=== PATIENT | male | born 1975 | race Caucasian/White ===

== ENCOUNTER → 2016-05-21 | Outpatient (CLI) | payer BC ==
[~2016-05-21] MED LIST: IODIXANOL LOCM 100 ML BTL ONE; SOD CHLORIDE 0.9% 100 ML ONE
[2016-05-21 11:16] LABS: POTASSIUM 4.4 mmol/L (3.5-5.1)
[2016-05-21 11:18] LABS: CREATININE 0.92 mg/dl (0.61-1.24)
[2016-05-21 11:19] LABS: CALCIUM 9.6 mg/dl (8.4-10.2)
--- NOTE | 2016-05-21 17:26 | RADRPT ---
PROCEDURE: CT CHEST WITHOUT CONTRAST CLINICAL INDICATION: Cough and wheezing TECHNIQUE: Volumetrically acquired images of the thorax obtained without intravenous contrast were reformatted in the axial, coronal, and sagittal planes. CTDI = 16.0 mGy; DLP = 682 mGy-cm. One or more of the following dose reduction technique were used: Automatic exposure control, adjustment of the mA and/or kV according to patient size, and use of iterative reconstruction technique. COMPARISON: 07/02/2014. FINDINGS: LOWER NECK AND CHEST WALL: Normal. AIRWAYS: The trachea and large airways are normal. Mild bronchial wall thickening is seen. LUNGS: Clear. No suspicious nodules, masses, or consolidation. PLEURA: Unremarkable. No pleural thickening or effusions. MEDIASTINUM: No mediastinal mass. LYMPH NODES: No significant axillary, hilar, or mediastinal lymphadenopathy by CT size criteria. CARDIAC: The heart size is normal. No pericardial effusion or thickening. VASCULAR: The aorta and main pulmonary artery are normal in caliber. OSSEOUS: No suspicious osseous lesions. Limited evaluation of the upper abdomen is unremarkable. IMPRESSION: 1. No intra-thoracic mass, lymphadenopathy, or focal acute consolidation. 2. Mild bronchial wall thickening may be sequela of bronchitis, asthma, or other nonspecific airway inflammation. . RPTAT:PP .Sarthak Nichols MD, Date Time Electronically viewed and signed by .Sarthak Nichols MD, MD on 05/21/2016 17:26 .V/
== END | disposition home or self-care (01) ==
LOC: C/S 10:42
PROVIDERS: ATTEND Internal Medicine
DX: R05 Cough (principal); R06.2 Wheezing; I10 Essential (primary) hypertension
CPT/HCPCS: 71270; 80048; Q9967

== ENCOUNTER → 2016-06-11 | Outpatient (CLI) | payer BC ==
[~2016-06-11] MED LIST changes: +ALBUTEROL 0.083% (NEB) 2.5 MG/3 ML AMP ONE; -IODIXANOL LOCM 100 ML BTL ONE; -SOD CHLORIDE 0.9% 100 ML ONE
== END | disposition home or self-care (01) ==
LOC: PUL 10:40
PROVIDERS: ATTEND Internal Medicine Pulmonary Disease
DX: R05 Cough (principal)
CPT/HCPCS: 94060; 94726; 94729

== ENCOUNTER 2017-02-22 21:44 | Emergency (ER) | END 2017-02-22 23:21 | disposition home or self-care (01) ==

== ENCOUNTER → 2017-05-04 | Outpatient (CLI) | END | disposition home or self-care (01) ==

== ENCOUNTER 2017-05-19 16:49 | Emergency (ER) | END 2017-05-19 19:13 | disposition home or self-care (01) ==

== ENCOUNTER → 2017-06-25 | Outpatient (CLI) | END | disposition home or self-care (01) ==

== ENCOUNTER → 2018-06-24 | Outpatient (CLI) | payer BC ==
[~2018-06-24] MED LIST changes: -ALBUTEROL 0.083% (NEB) 2.5 MG/3 ML AMP ONE; +HYDR-4011 PO
== END | disposition home or self-care (01) ==
LOC: RAD 10:41
PROVIDERS: ATTEND Internal Medicine
DX: R05 Cough (principal)
CPT/HCPCS: 71046; 80053; 80061; 81003; 82652; 84153; 84154; 84443; 85025

== ENCOUNTER 2018-11-23 11:28 | Emergency (ER) | payer BC ==
[~2018-11-23] VITALS: Ht 190.5 cm; Wt 97.7 kg
[~2018-11-23 11:28] MED LIST changes: +IBUP-1542 PO
[2018-11-23] MEDS ORDERED: KETOROLAC 15 MG INJ IM STA (11:37)
[2018-11-23 11:43] VITALS: BP 122/100; PULSE 88; RESP 18; Ht 190.5 cm; Wt 97.7 kg
== END 2018-11-23 12:44 | disposition home or self-care (01) ==
LOC: E/R 11:28
DX: M79.601 Pain in right arm (principal); R60.0 Localized edema; I10 Essential (primary) hypertension; M54.10 Radiculopathy, site unspecified; Z87.891 Personal history of nicotine dependence
CPT/HCPCS: 93971; 96372; 99285; J1885